=== PATIENT | male | born 1950 | race Caucasian/White ===

== ENCOUNTER → 2017-01-05 | Outpatient (CLI) | payer OTHER, MEDICARE ==
[~2017-01-05] MED LIST: FENO160T PO; FINA5TAB4 PO; LOVA10TA PO; METO-95 PO; PROP50TA3 PO; WARF5TAB7 PO
== END | disposition home or self-care (01) ==
LOC: RAD 10:26
PROVIDERS: ATTEND Urology
DX: N28.89 Other specified disorders of kidney and ureter (principal)
CPT/HCPCS: 74000

== ENCOUNTER → 2017-12-25 | Outpatient (CLI) | payer OTHER, MEDICARE ==
[~2017-12-25] MED LIST changes: +WARF-36 PO; -WARF5TAB7 PO
== END ==
LOC: CFH 11:18
PROVIDERS: ATTEND Urology
DX: N20.1 Calculus of ureter (principal); N20.0 Calculus of kidney
CPT/HCPCS: 74018

== ENCOUNTER 2018-12-25 10:03 | Outpatient (CLI) | payer OTHER, MEDICARE | END 2018-12-25 23:59 | disposition home or self-care (01) | LOC: CFH 10:03 | PROVIDERS: ATTEND Internal Medicine | DX: N18.3 Chronic kidney disease, stage 3 (moderate) (principal); N40.0 Benign prostatic hyperplasia without lower urinary tract symptoms | CPT/HCPCS: 76770 ==

== ENCOUNTER 2019-03-20 11:07 | Outpatient (CLI) | payer OTHER, MEDICARE | END 2019-03-20 23:59 | disposition home or self-care (01) | LOC: CFH 11:07 | PROVIDERS: ATTEND Internal Medicine | DX: M47.816 Spondylosis without myelopathy or radiculopathy, lumbar region (principal); M41.86 Other forms of scoliosis, lumbar region | CPT/HCPCS: 72110 ==

== ENCOUNTER → 2019-06-17 | Outpatient (CLI) | payer OTHER, MEDICARE | END | disposition home or self-care (01) | LOC: RAD 11:45 | PROVIDERS: ATTEND Urology | DX: N20.0 Calculus of kidney (principal) | CPT/HCPCS: 74018 ==

== ENCOUNTER → 2020-05-22 | Outpatient (CLI) | payer OTHER, MEDICARE | END | disposition home or self-care (01) | LOC: RAD 09:42 | PROVIDERS: ATTEND Urology | DX: N20.0 Calculus of kidney (principal) | CPT/HCPCS: 74018 ==